=== PATIENT | male | born 1965 | race Hispanic/Latino ===

== ENCOUNTER 2017-02-05 00:01 | Emergency (ER) | payer OTHER ==
[2017-02-05 00:10] VITALS: TEMP 98.2; O2SAT 99
--- NOTE | 2017-02-05 00:39 | ED PDOC ---
HPI: Chest Pain Chief Complaint (Nursing): Palpitations Chief Complaint (Provider): palpitations History Per: Patient History/Exam Limitations: no limitations Onset/Duration Of Symptoms: Hrs (1) Current Symptoms Are (Timing): Better Severity: Mild Associated Symptoms: Nausea Alleviating Factors: Rest Additional Complaint(s): Patient is a 51 year ol male with PMHx A fib/flutter, depression/ anxiety, substance abuse d/o who presents with palpitations and sense of flushing and nausea after he tookantabuse having already had alcohol in his sytem. He reports having 3-4 alcoholic beverages at 5PM and at 10pm he took antabuse erroneously. He has hx cocaine abuse, but has not used cocaine in many weeks. He was discharged from [facility], [place], operated by [facility] after being admitted there for cardioversion. On arrival to ED he states symptoms are improved and he is hoping to be discharged. Past Medical History Reviewed: Historical Data, Nursing Documentation, Vital Signs Vital Signs: Last Vital Signs Temp 98.2 F 02/05/17 00:07 Pulse 74 02/05/17 00:55 Resp 18 02/05/17 00:55 BP 118/71 02/05/17 00:55 Pulse Ox 99 02/05/17 01:21 - Medical History PMH: Anxiety, Atrial Fibrillation, Depression - Surgical History Surgical History: Hernia Repair (x2) - Family History Family History: States: No Known Family Hx - Social History Current smoker - smoking cessation education provided: No Alcohol: > 2 Drinks/Day Drugs: Cocaine (occasional) - Home Medications Home Medications: Ambulatory Orders Medication Instructions Recorded No Known Home Med [No Known Home 09/19/14 Med] - Allergies Allergies/Adverse Reactions: Allergies Allergy/AdvReac Type Severity Reaction Status Date / Time No Known Allergies Allergy Verified 02/05/17 00:06 Review of Systems ROS Statement: Except As Marked, All Systems Reviewed And Found Negative Cardiovascular: Positive for: Palpitations Gastrointestinal: Positive for: Nausea Physical Exam - Reviewed Nursing Documentation Reviewed: Yes Vital Signs Reviewed: Yes - Physical Exam Appears: Positive for: Well, Non-toxic Head Exam: Positive for: ATRAUMATIC, NORMOCEPHALIC Skin: Positive for: Normal Color, Warm, Dry Eye Exam: Positive for: Normal appearance, EOMI, PERRL ENT: Positive for: Normal ENT Inspection Neck: Positive for: Normal, Painless ROM, Supple Cardiovascular/Chest: Positive for: Regular Rate, Rhythm. Negative for: Edema, Tachycardia Respiratory: Positive for: Normal Breath Sounds. Negative for: Crackles, Rales , Wheezing Gastrointestinal/Abdominal: Positive for: Normal Exam, Bowel Sounds, Soft. Negative for: Tenderness Back: Positive for: Normal Inspection. Negative for: L CVA Tenderness, R CVA Tenderness Extremity: Positive for: Normal ROM. Negative for: Tenderness, Pedal Edema Neurologic/Psych: Positive for: Alert, Oriented. Negative for: Motor/Sensory Deficits - ECG O2 Sat by Pulse Oximetry: 99 Medical Decision Making Medical Decision Makin51 year old male with Antabuse/Alcohol associated reaction EKG ordered Trial of observation Provider explained that effects patient is experiencing are c/w Antabuse and alcohol use. Uri castle informed patient that it is npot in his best interest to be given medication to reverse discomfort with exception of in case of life threatening arrythmia or sever nausea/vomiting. He was offered IV fluid hydration and and antiemetics which he declines. Patient has taken Xanax and Valium [employer] for his sense of panic. He checked his HR at home and states it was in 80s and also reports that he has extreme self awareness when he is in A Fib, but had no such feeling tonight. At 01:30AM pt reports symptoms resolved and he is po tolerant. No N/V or palpitations. Dx Alcohol use d/o, palpitations Improved Disposition - Clinical Impression Clinical Impression: Palpitations, Alcohol use disorder - Patient ED Disposition Is Patient to be Admitted: No - Disposition Disposition: Routine/Home Disposition Time: 01:00 Condition: STABLE Instructions: Palpitations (ED) Forms: [employer] (K[place]akh)
[2017-02-05 01:24] VITALS: BP 118/71; PULSE 74; RESP 18
--- NOTE | 2017-02-05 08:51 | CARD ---
APPROVED REPORT EKG Measurement Heart [id number] <Conclusion> Normal sinus rhythm Normal ECG
== END 2017-02-05 01:24 | disposition home or self-care (01) ==
LOC: H.ER 00:01
DX: R00.2 Palpitations (principal); F32.9 Major depressive disorder, single episode, unspecified; F41.9 Anxiety disorder, unspecified; I48.91 Unspecified atrial fibrillation